=== PATIENT | female | born 1975 | race Caucasian/White ===

== ENCOUNTER 2024-05-12 20:25 | Emergency (ER) | payer MEDICARE, SELFPAY ==
--- NOTE | ~2024-05-12 | XR_ITS ---
EXAMINATION: XR TIBIA AND FIBULA, RIGHT CLINICAL INFORMATION: Trauma COMPARISON: None available. TECHNIQUE: AP and lateral views of the right tibia and fibula were obtained. FINDINGS/ XR/XR tibia fibula RT 2V IMPRESSION: No acute fracture or dislocation of the tibia/fibula. Proximal pretibial soft tissue swelling. Electronically signed by: Luis Abarca DO 05/12/2024 10:29 PM EDT
--- NOTE | ~2024-05-12 | XR_ITS ---
EXAMINATION: XR KNEE, RIGHT CLINICAL INFORMATION: Trauma COMPARISON: None available. TECHNIQUE: Four views of the right knee. FINDINGS: No acute fracture or dislocation of the right knee. Significant pretibial and prepatellar soft tissue swelling. Tricompartmental osteoarthritis, worse within the medial compartment. Postsurgical changes of ACL/PCL repair with anchor screws. Subtle cortical irregularity of the medial patella, only seen on AP view with an adjacent large soft tissue hematoma. XR/XR knee RT 3V IMPRESSION: No definite acute fracture or dislocation. However, there is focal cortical irregularity along the inferomedial aspect of the patella with associated regional soft tissue swelling. Patellar fracture cannot be excluded. Recommend repeat study with sunrise views were CT knee. Electronically signed by: Luis Abarca DO 05/12/2024 10:26 PM EDT
--- NOTE | ~2024-05-12 | CT_ITS ---
EXAMINATION: CT KNEE WITHOUT CONTRAST, RIGHT CLINICAL INFORMATION: Pain, fall, abnormal x-ray COMPARISON: Radiographs from the same day TECHNIQUE: Multidetector helical imaging was performed through the right knee. Coronal and sagittal reformatted images were created. This CT examination was performed using dose optimization techniques as appropriate, variously including the following: *Automated exposure control *Adjustment of mA and/or kV according to patient size (this includes techniques or standardized protocols for targeted exams where dose is matched to indication/reason for exam; i.e. extremities or head) *Use of iterative reconstruction technique DLP: 200 mGy-cm FINDINGS: Alignment across the knee is anatomic. Slight tricompartmental joint space narrowing along with mild osteophytosis. There is mild chronic appearing irregularity along the inferior aspect of the patella, without definite acute fracture. Redemonstrated postoperative changes with screws in the distal femur and proximal tibia. There is a chronic appearing osseous density along the posterior aspect of the medial compartment. No significant joint effusion. There is soft tissue swelling along the anteromedial aspect of the knee with an associated hematoma measuring up to approximately [address]/CT knee RT wo IV con IMPRESSION: Soft tissue swelling along the anteromedial aspect of the knee with associated hematoma measuring up to approximately 7 cm in diameter. No definite acute fracture. Electronically signed by: Paolo Murray MD 05/13/2024 12:46 AM EDT
[2024-05-12 20:30] VITALS: BP 134/92; PULSE 75; RESP 18; TEMP 36.7; O2SAT 98; BMI 26.8
--- NOTE | 2024-05-12 20:32 | ED_ITS ---
HPI - Extremity Injury (Lower) General Chief Complaint: Extremity Injury, Lower Stated Complaint: RT knee injury Time Seen by Provider: 05/12/24 22:15 Source: patient Mode of arrival: ambulatory Limitations: no limitations History of Present Illness HPI Narrative: Patient is a 48-year-old female presents emergency department for evaluation of traumatic right knee pain. Reports that she was cleaning and fell through a floorboard on the porch sustaining injury to the right knee. Has notable ecchymosis and pain to the right knee. Admits to a history of multiple surgeries in the past. She also has an area of ecchymosis to the right distal lateral thigh. Endorses pain to the left elbow but has full range of motion. Denies any numbness or tingling to the extremities. Denies any head strike or loss of consciousness. Related Data Allergies Allergy/AdvReac Type Severity Reaction Status Date / Time No Known Allergies Allergy Verified 05/12/24 20:39 Review of Systems Review of Systems: Yes all other systems are reviewed and are negative PMFSH Past Medical History Attestation statement: The following information was validated with the patient. Source: old records reviewed Social History Social History Smoked in Last 30 Days: No Use of substances other than those prescribed or required for medical reasons: Yes Substance Use Type: Marijuana Advance Directives: No Advance Directives Information Provided: Yes Do you have a plan to hurt others: No Plan Patient : No Physical Exam Vital Signs: Vital Signs: Last Vital Signs Temp 98.0 F 05/12/24 20:30 Pulse 74 05/13/24 00:00 Resp 18 05/13/24 00:00 BP 128/73 05/13/24 00:00 Pulse Ox 96 05/13/24 00:00 O2 Del Method Room Air 05/12/24 20:30 BMI result Body Mass Index 26.8 Appearance: Alert.?Oriented to person, place and time. No acute distress.?Normal affect. Eyes: Pupils equal, round and reactive to light.? ENT: Pharynx normal.?? Neck: Normal inspection.? Neck supple.?? CVS: Heart sounds normal. Normal heart rate and rhythm.? Pulses normal.?? Respiratory: No respiratory distress.? Lung sounds clear to auscultation bilaterally?? Abdomen: Soft and non-tender. Normoactive bowel sounds. No pulsatile mass.?? Skin: Skin warm and dry.? Normal skin color.? Normal skin turgor.?? Extremities: Extensive ecchymosis and swelling to the right knee. Distal lateral thigh area of ecchymosis and tenderness upon palpation. Not appear to have laxity on exam has notable tenderness throughout. 2+ DP/PT pulse bilaterally. Left elbow with full range of motion, superficial abrasion present. Neuro: Moves all extremities spontaneously. Sensation intact bilaterally. No focal neuro deficits. Ambulates with antalgic gait. Course Course Course Narrative: This is a Rapid Medical Examination (RME) performed by Gloria Medrano PA-C in triage. Full HPI, ROS, assessment and treatment plan per primary provider in the Main ED. 48 yo female here for eval of right knee/ lower leg pain. reports sweeping the floor at her apartment when her right leg fell through the floor boards. no head strike or LOC. reports pain to right knee/ lower leg. 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 tetatnus not UTD. not on anticoagulation. + vertical scar noted to right knee status post 3 knee repairs. Noted bruising just distal to right knee. Tender to palpation. Ambulating with limping gait. Plan: X-rays, Tdap booster Medications Administered Discontinued Medications Generic Name Dose Route Start Last Admin Trade Name Freq PRN Reason Stop Dose Admin Diphtheria/Tetanus/Acell Pertussis 0.5 ml 05/12/24 23:04 05/12/24 23:28 Diphth,Pertus(Acell),Tet Adult 0.5 Ml Syringe IM 05/12/24 23:05 0.5 ml .ONCE ONE Administration Medical Decision Making Medical Decision Making [facility] Narrative: Patient is a 48-year-old female presents emergency department for evaluation of right knee pain after mechanical fall as per HPI. No head strike or loss of consciousness, unlikely to have ICH, SDH, skull fracture, defer CT imaging head/cervical spine. Notable ecchymosis pain and swelling to the right knee, no laxity on evaluation. XR revealing focal cortical irregularity along the inferomedial aspect of the patella with soft tissue swelling, can not exclude patellar fracture, obtaining CT imaging for further evaluation. Extremities neurovascularly intact distally. Declines the need for analgesics at this time. Differential Diagnosis Differential Diagnoses: The differential diagnosis associated with the presentation includes (See narrative above) Admission/Observation Consideration of admission/observation: Escalation of care including admission/observation considered Independent Interpretation I performed an independent interpretation of an: Plain X-Ray Radiology Impression Discussion of test interpretation with radiology: I have reviewed the radiologist's reading. Radiologist Impression: XR/XR knee RT 3V IMPRESSION: No definite acute fracture or dislocation. However, there is focal cortical irregularity along the inferomedial aspect of the patella with associated regional soft tissue swelling. Patellar fracture cannot be excluded. Recommend repeat study with sunrise views were CT knee. XR/XR tibia fibula RT 2V IMPRESSION: No acute fracture or dislocation of the tibia/fibula. Proximal pretibial soft tissue swelling. CT/CT knee RT wo IV con IMPRESSION: Soft tissue swelling along the anteromedial aspect of the knee with associated hematoma measuring up to approximately 7 cm in diameter. No definite acute fracture. Independent Historian Clinical information obtained from an independent historian. History obtained from or confirmed by: Friend External Record Review External record reviewed: Outpatient record Prescription Management I considered prescription management with: Pain Medication Discharge Plan Discharge Clinical Impression: Knee sprain Patient Disposition: Home, Self-Care Instructions: Knee Sprain (ED), How to Use an Elastic Bandage (ED), R.I.C.E. Treatment (ED) Additional Instructions: Imaging is without evidence of acute fracture dislocation. Please be sure to rest, apply ice the area for 10-15 minutes 3-4 times daily, use Carl bandage for compression, elevate the leg above the level of your chest. For persistent symptoms or progressive symptoms please follow-up with PCP/Orthopedics. You may return back to emergency department any new or worsening symptoms or concerns. Print Language: Amharic
[2024-05-12] MEDS: Diphth,Pertus(ACell),Tet Adult 0.5 ML SYRINGE IM (23:28)
[2024-05-13] VITALS: BP 128/73; PULSE 74; RESP 18; O2SAT 96
[2024-05-13 01:12] VITALS: BP 128/73; PULSE 74; RESP 18; TEMP 36.8; O2SAT 96
== END 2024-05-13 01:13 | disposition home or self-care (01) ==
PROVIDERS: Emergency Provider Emergency Medicine; PCP Family Medicine
DX: S83.91XA Sprain of unspecified site of right knee, initial encounter (principal); W18.30XA Fall on same level, unspecified, initial encounter; Y93.9 Activity, unspecified; Y92.9 Unspecified place or not applicable; Y99.9 Unspecified external cause status; M25.561 Pain in right knee; Z23 Encounter for immunization; M25.522 Pain in left elbow
CPT/HCPCS: 73562; 73590; 73700; 90471; 90715; 99284

== ENCOUNTER 2024-10-23 23:21 | Emergency (ER) | payer MEDICARE, MEDICAID, SELFPAY ==
--- NOTE | ~2024-10-23 | CT_ITS ---
CLINICAL HISTORY: Intoxicated, head injury CT cervical spine without contrast Comparison: None Findings: The visualized portions of the bilateral lung apices appear clear. Normal vertebral body alignment. No acute fractures or dislocations. Blpe-pz-frfrcbky degenerative endplate changes are present at the cervical spine. Impression: 1. No acute fracture or dislocation injury identified at the cervical spine. This document has been electronically signed by: Sj Carpenter MD on 10/24/2024 02:54:57
--- NOTE | ~2024-10-23 | CT_ITS ---
CLINICAL HISTORY: Head injury with loss of consciousness CT head without contrast Comparison: None Findings: No intracranial mass, midline shift, hydrocephalus, or acute hemorrhage. Visualized paranasal sinuses and mastoid air cells appear clear. No acute skull fracture. Mild left parietal scalp swelling. Impression: 1. No acute intracranial abnormality. No acute intracranial hemorrhage. 2. Mild left parietal scalp swelling. No acute calvarial fracture. This document has been electronically signed by: Sj Carpenter MD on 10/24/2024 02:59:19
--- NOTE | ~2024-10-23 | CT_ITS ---
CLINICAL HISTORY: Abdominal pain and distention, elevated lipase CT abdomen and pelvis with contrast Comparison: None Findings: Minimal linear bibasilar subsegmental atelectasis. Ubtoxpna-ox-xumdl volume ascites present throughout the abdomen, limiting evaluation for acute inflammatory processes. The liver is diffusely nodular in contour, consistent with cirrhosis. The spleen is enlarged. Varices are present at the left upper abdominal quadrant. Paraesophageal varices are present. The main portal vein appears patent. No gallbladder wall thickening identified to suggest acute cholecystitis. The gallbladder is surrounded by ascites. The pancreas and bilateral adrenal glands are within normal limits for appearance. No left hydronephrosis. Mild right hydronephrosis present. There appears to be minimal right hydroureter. The gallbladder and solid organs are within normal limits. No hydronephrosis or hydroureter. No bowel obstruction, pneumoperitoneum, or pneumatosis. Tiny, fluid containing umbilical hernia. The uterus is enlarged and lobulated in contour, possibly related to uterine fibroid disease. Tiny, fat containing left inguinal hernia. The urinary bladder is moderately distended with fluid. No bladder wall thickening appreciated. Normal appendix. No acute fracture visualized. IMPRESSION: 1. Cirrhosis with pbtdrwcs-tx-lbopv volume ascites and edema throughout the abdomen, limiting evaluation for acute inflammatory processes. There is splenomegaly with varices, consistent with portal venous hypertension. 2. Mild right hydronephrosis present with minimal right hydroureter. These findings are of uncertain etiology, possibly related to some degree of compression of the distal right ureter with the enlarged uterus. 3. Findings suggesting uterine fibroid disease. This document has been electronically signed by: Sj Carpenter MD on 10/24/2024 02:50:55
--- NOTE | ~2024-10-23 | US_ITS ---
EXAMINATION: US GUIDED PARACENTESIS CLINICAL INFORMATION: Ascites, therapeutic and diagnostic. COMPARISON: CT abdomen and pelvis dated 10/24/2024. TECHNIQUE/FINDINGS: Consent was obtained. Timeout was performed. Scanning of the abdomen using real-time ultrasound imaging, and a suitable pocket of ascitic fluid was identified in the right lower quadrant. The site was marked, skin prepped and draped in sterile fashion, and subsequently in the subcutaneous soft tissues were anesthetized with 1% lidocaine. Using standard technique, a 5 K[place] Yueh catheter was advanced into the fluid pocket and left drain via vacuum bottle. Approximately 1.7 L of serena-colored ascitic fluid was drained. The catheter was removed. The patient tolerated the procedure well. No immediate complication. A sample was sent for laboratory analysis. US/US paracentesis abd w/image IMPRESSION: 1. Successful ultrasound-guided abdominal paracentesis with drainage of 1.7 L of serena ascitic fluid. No immediate complication. Electronically signed by: Jonathon Garland MD 10/24/2024 12:02 PM [facility]IR[facility]
[2024-10-23 23:29] VITALS: BP 148/78; PULSE 86; O2SAT 98
[2024-10-24] VITALS (9 sets, daily range): BP systolic 103–128; BP diastolic 63–82; PULSE 66–82; RESP 16–214; TEMP 36.1–36.9; O2SAT 94–99; BMI 29.9
--- NOTE | 2024-10-24 | ECG_ITS ---
Test Reason : fall dizziness Blood Pressure : */* mmHG Vent. Rate : 84 BPM Atrial Rate : 84 BPM P-R Int : 144 ms QRS Dur : 88 ms QT Int : 398 ms P-R-T Axes : 37 53 12 degrees QTcB Int : 470 ms Normal sinus rhythm Normal ECG No previous ECGs available Referred By: Generic ED Physician Electronically Signed By: JUSTYNA WYNNE MD
[2024-10-24 00:35] LABS: Hematocrit 41.3 % (37.0-47.0); Hemoglobin 14.3 g/dl (12.0-16.0); Mean Corpuscular HGB Conc 34.6 g/dl (31.0-35.0); Mean Corpuscular Hemoglobin 30.8 pg (27.0-33.0); Mean Corpuscular Volume 88.8 fL (80.0-98.0); Mean Platelet Volume 11.3 fL (9.4-12.3); Red Blood Count 4.65 X10*6/uL (4.20-5.50); Red Cell Distribution Width 16.3 % (11.0-16.0); White Blood Count 4.5 X10*3/uL (4.8-10.8)
[2024-10-24 00:50] LABS: Platelet Count 85 X10*3/uL (160-400)
[2024-10-24 00:52] LABS: Alanine Aminotransferase 23 U/L (0-31); Albumin Level 3.9 g/dL (3.5-5.0); Alkaline Phosphatase 80 U/L (39-117); Anion Gap 17 (12-20); Aspartate Amino Transferase 48 U/L (5-31); Bilirubin Direct 0.5 mg/dL (0.0-0.5); Bilirubin Total 1.2 mg/dL (0.0-1.0); Blood Urea Nitrogen 5 mg/dL (9-16); Carbon Dioxide 18 mmol/L (22-29); Chloride 109 mmol/L (96-108); Estimated Glomerular Filt Rate > 60; Ethanol 268 mg/dL; Glucose Random 109 mg/dL (60-115); Lipase 228 U/L (8-78); Potassium 3.7 mmol/L (3.3-5.1); Sodium 140 mmol/L (135-145); Total Protein 8.2 g/dL (6.5-8.0)
[2024-10-24 01:00] LABS: Appearance Urine Clear; Color Urine Yellow; Glucose Urine UA Negative (Negative); Leukocyte Esterase Urine Negative (Negative); Nitrite Urine Negative (Negative); Specific Gravity - Urine <= 1.005 (1.005-1.025); Urine Blood Negative (Negative); Urine Ketones Negative (Negative); Urine Protein Negative (Neg-Trace)
--- NOTE | 2024-10-24 01:05 | ED_ITS ---
HPI - General Adult General Chief complaint: Fall Stated complaint: Syncopal, Fell, HS, Lac to ear,, etoh Time Seen by Provider: 10/24/24 01:05 History of Present Illness ED Provider: Melecio MARISCAL narrative: The patient is a 49-year-old woman who says that she has a history of cirrhosis. She says she was at home today when she felt dizzy and fell and hit her head. She may have had a period of loss of consciousness. She has an injury to her left ear. She admits to drinking alcohol tonight. She says that she had a bottle of wine and a bottle of beer. She also had some marijuana. She says that she had felt dizzy before she fell. She also feels that her abdomen has gotten more distended recently. She thinks that the distention of her abdomen has been coming on for about 2 months. 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 She has not seen the paving and surfacing labourer for about a year. She has not been on her medication regimens that she has been on to manage her cirrhosis for awhile. No fever, sweats, chills. No nausea or vomiting. Related Data Allergies Allergy/AdvReac Type Severity Reaction Status Date / Time acetaminophen [From Vicodin] Allergy Itching Verified 10/24/24 00:51 hydrocodone [From Vicodin] Allergy Itching Verified 10/24/24 00:51 Review of Systems 2 Review of Systems: Yes all other systems are reviewed and are negative [facility] Social History Social History Substance Use Type: Marijuana Advance Directives: No Advance Directives Information Provided: Yes Physical Exam ED Vital Signs: Vital Signs - 24 hr 10/24/24 00:30 10/24/24 00:48 10/24/24 04:15 Temperature 97.0 F 97.5 F Pulse Rate 80 78 75 Respiratory Rate 18 18 18 Blood Pressure 120/82 128/78 118/72 Pulse Oximetry 98 94 96 Oxygen Delivery Method Room Air Room Air Room Air 10/24/24 06:31 Temperature 97.9 F Pulse Rate 76 Respiratory Rate 16 Blood Pressure 103/63 Pulse Oximetry 95 Oxygen Delivery Method Room Air BMI result Body Mass Index 29.9 Const Other: The patient is awake and alert. She looks like a somewhat chronically ill- appearing 49-year-old. She seemed intoxicated. HENMT Other: The patient has a number of abrasions to the pinna of the left ear. No other significant signs of trauma to the head or the face. No raccoon eyes. No lacey sign. Mucous membranes are moist. The airway is clear. Eyes General: appearance normal, both eyes and all related structures Conjunctivae: conjunctivae normal Sclerae: sclerae normal Pupils: Equal, round and reactive pupils present EOM: EOMs intact bilaterally Neck Other: No significant posterior midline C-spine tenderness but I did not feel I could clinically clear the patient's C-spine because she seemed intoxicated. No swelling to the neck. Resp Effort & Inspection: normal respiratory effort Auscultation: clear to auscultation bilaterally Cardio Rate: regular rate Rhythm: regular rhythm Heart sounds: S1 normal heart sound present and S2 normal heart sound present GI Other: The abdomen is protuberant and seems full but is not particularly tender. There is some protrusion at the umbilicus. There is a pitka's point of tympany. Skin Other: The skin is dry and unremarkable aside from the skin of the pinna of the left ear which has a few abrasions. Neuro Other: The patient was awake alert and seemed intoxicated. However there were no obvious focal neurological findings. Her face was symmetrical. Her eye movements were intact. Her speech was not grossly slurred. She moves her extremities symmetrically. She walked very slowly but was able to walk. Cranial nerves: Yes Equal, round and reactive pupils present Extrem Other: Mild peripheral edema. Medications Administered Discontinued Medications Generic Name Dose Route Start Last Admin Trade Name Freq PRN Reason Stop Dose Admin Iohexol 85 ml 10/24/24 02:04 10/24/24 02:05 Iohexol 350 Mg/Ml 100 Ml Infus..Btl IV 10/24/24 02:05 85 ml ONCE ONE Administration Medical Decision Making Medical Decision Making [facility] Narrative: The patient is a 49-year-old woman who says she has a history of cirrhosis. She had a syncopal episode in her kitchen after feeling dizzy. She says that she passed out and woke up on the floor. She has abrasions to the left ear. She admits to alcohol use tonight. She claims this is the 1st time in a few months that she has had alcohol. She also had some marijuana. These may have contributed to her syncopal episode. The patient is also complaining of abdominal distention that she she says has been getting worse over the last 2 months. Her physical exam is suggestive of ascites. She does not seem to have any significant pain or tenderness that would suggest spontaneous bacterial peritonitis. The patient's labs show a white count of 4.5, hemoglobin 14.3, platelet count 85, differential on the white count is 70 5% neutrophils. Her INR is 1.3. Comprehensive metabolic panel shows an AST of 48, ALT of 23, total bilirubin of 1.2, lipase of 228. She does not complain of epigastric abdominal pain and does not seem to have significant tenderness that would suggest pancreatitis. Her ammonia level is 31. CT of the abdomen and pelvis shows cirrhosis with moderate to large volume ascites and edema throughout the abdomen there is splenomegaly with varices. There are findings of right hydronephrosis which do not correlate with any symptoms the patient seems to be having. In some this is a 49-year-old woman with previously diagnosed alcoholic cirrhosis who had a syncopal episode today in the setting of worsening ascites over the last 2 months. Additionally she has not been in touch with any of her doctors significantly recently. The patient claims that the alcohol use tonight was the 1st time in months. I suspect that she fainted because of her alcohol and marijuana use. Her ethanol level was 268. Her EKG is unremarkable. Her hemoglobin is good. I spoke to the admitting hospitalist about this patient. He did not feel that there was any definite acute medical decompensation which would require admission to the hospital. I will therefore attempt to obtain a therapeutic paracentesis through Interventional Radiology. The patient will be signed out to the oncoming emergency physician at change of shift. My expectation is that the patient will probably tolerate a paracentesis well. The patient will need to reconnect with her paving and surfacing labourer at [facility] or get in touch with the local paving and surfacing labourer. She will also need to be advised to completely abstain from alcohol. Lab Data 10/24/24 00:28 10/24/24 00:28 Labs: Lab Results 10/24/24 10/24/24 10/24/24 Range/Units 00:28 00:49 00:58 WBC 4.5 L (4.8-10.8) X10*3/uL RBC 4.65 (4.20-5.50) X10*6/uL Hgb 14.3 (12.0-16.0) g/dl Hct 41.3 (37.0-47.0) % MCV 88.8 (80.0-98.0) fL MCH 30.8 (27.0-33.0) pg MCHC 34.6 (31.0-35.0) g/dl RDW 16.3 H (11.0-16.0) % Plt Count 85 L (160-400) X10*3/uL MPV 11.3 (9.4-12.3) fL Immature Gran % (Auto) 0.4 (0.0-0.4) % Neut % (Auto) 75.6 H (45-73) % Lymph % (Auto) 13.9 L (20-40) % [place] % (Auto) 8.6 (2-11) % Eos % (Auto) 1.1 (0-4) % Baso % (Auto) 0.4 (0-2) % Lymph # (Auto) 0.7 L (1.2-4.9) X10*3/uL [place] # (Auto) 0.4 (0.1-1.2) X10*3/uL Eos # (Auto) 0.1 (0.0-0.4) X10*3/uL Baso # (Auto) 0.0 (0.0-0.2) X10*3/uL Abs Immat Gran (auto) 0.02 (0.00-0.03) X10*3/uL Absolute Neuts (auto) 3.5 (2.0-8.3) x10*3/uL Absolute Nucleated RBC 0.000 (0.0-0.012) X10*3/uL Nucleated RBC % (auto) 0.0 (0.0-0.2) /100WBC PT (10.9-12.4) SEC INR (0.9-1.1) Sodium 140 (135-145) mmol/L Potassium 3.7 (3.3-5.1) mmol/L Chloride 109 H (96-108) mmol/L Carbon Dioxide 18 L (22-29) mmol/L Anion Gap 17 (12-20) BUN 5 L (9-16) mg/dL Creatinine 0.67 (0.5-1.4) mg/dL Estim Creat Clear Calc TNP Estimated GFR > 60 Random Glucose 109 (60-115) mg/dL Calcium 9.0 (8.4-10.2) mg/dL Total Bilirubin 1.2 H (0.0-1.0) mg/dL Direct Bilirubin 0.5 (0.0-0.5) mg/dL AST 48 H (5-31) U/L ALT 23 (0-31) U/L Alkaline Phosphatase 80 (39-117) U/L Ammonia (13-55) umol/L Total Protein 8.2 H (6.5-8.0) g/dL Albumin 3.9 (3.5-5.0) g/dL Lipase 228 H (8-78) U/L Urine Color Yellow Urine Appearance Clear Urine pH 6.0 (5.0-9.0) Ur Specific [place] <= 1.005 (1.005-1.025) Urine Protein Negative (Neg-Trace) mg/dL Urine Glucose (UA) Negative (Negative) mg/dL Urine Ketones Negative (Negative) mg/dL Urine Blood Negative (Negative) Urine Nitrite Negative (Negative) Ur Leukocyte Esterase Negative (Negative) Urine Opiates Screen Not Detected (Not Detect) Ur Buprenorphine Scrn Not Detected (Not Detect) ng/mL Ur Oxycodone Screen Not Detected (Not Detect) ng/mL Urine Methadone Screen Not Detected (Not Detect) ng/mL Urine Fentanyl Screen Not Detected (Not Detect) Ur Barbiturates Screen Not Detected (Not Detect) Ur Phencyclidine Scrn Not Detected (Not Detect) Ur Amphetamines Screen Not Detected (Not Detect) U Benzodiazepines Scrn Not Detected (Not Detect) Urine Cocaine Screen Not Detected (Not Detect) U Marijuana (THC) Screen POSITIVE H (Not Detect) Ethyl Alcohol 268 mg/dL COVID-19 (SANTANA) Negative (Negative) COVID-19 Clin Com See Note Influenza Type A (BILLIE) Negative (Negative) Influenza Type B (BILLIE) Negative (Negative) Influenza A & B Note See Note 10/24/24 Range/Units 03:56 WBC (4.8-10.8) X10*3/uL RBC (4.20-5.50) X10*6/uL Hgb (12.0-16.0) g/dl Hct (37.0-47.0) % MCV (80.0-98.0) fL MCH (27.0-33.0) pg MCHC (31.0-35.0) g/dl RDW (11.0-16.0) % Plt Count (160-400) X10*3/uL MPV (9.4-12.3) fL Immature Gran % (Auto) (0.0-0.4) % Neut % (Auto) (45-73) % Lymph % (Auto) (20-40) % [place] % (Auto) (2-11) % Eos % (Auto) (0-4) % Baso % (Auto) (0-2) % Lymph # (Auto) (1.2-4.9) X10*3/uL [place] # (Auto) (0.1-1.2) X10*3/uL Eos # (Auto) (0.0-0.4) X10*3/uL Baso # (Auto) (0.0-0.2) X10*3/uL Abs Immat Gran (auto) (0.00-0.03) X10*3/uL Absolute Neuts (auto) (2.0-8.3) x10*3/uL Absolute Nucleated RBC (0.0-0.012) X10*3/uL Nucleated RBC % (auto) (0.0-0.2) /100WBC PT 14.6 H (10.9-12.4) SEC INR 1.3 H (0.9-1.1) Sodium (135-145) mmol/L Potassium (3.3-5.1) mmol/L Chloride (96-108) mmol/L Carbon Dioxide (22-29) mmol/L Anion Gap (12-20) BUN (9-16) mg/dL Creatinine (0.5-1.4) mg/dL Estim Creat Clear Calc Estimated GFR Random Glucose (60-115) mg/dL Calcium (8.4-10.2) mg/dL Total Bilirubin (0.0-1.0) mg/dL Direct Bilirubin (0.0-0.5) mg/dL AST (5-31) U/L ALT (0-31) U/L Alkaline Phosphatase (39-117) U/L Ammonia 31 (13-55) umol/L Total Protein (6.5-8.0) g/dL Albumin (3.5-5.0) g/dL Lipase (8-78) U/L Urine Color Urine Appearance Urine pH (5.0-9.0) Ur Specific [place] (1.005-1.025) Urine Protein (Neg-Trace) mg/dL Urine Glucose (UA) (Negative) mg/dL Urine Ketones (Negative) mg/dL Urine Blood (Negative) Urine Nitrite (Negative) Ur Leukocyte Esterase (Negative) Urine Opiates Screen (Not Detect) Ur Buprenorphine Scrn (Not Detect) ng/mL Ur Oxycodone Screen (Not Detect) ng/mL Urine Methadone Screen (Not Detect) ng/mL Urine Fentanyl Screen (Not Detect) Ur Barbiturates Screen (Not Detect) Ur Phencyclidine Scrn (Not Detect) Ur Amphetamines Screen (Not Detect) U Benzodiazepines Scrn (Not Detect) Urine Cocaine Screen (Not Detect) U Marijuana (THC) Screen (Not Detect) Ethyl Alcohol mg/dL COVID-19 (SANTANA) (Negative) COVID-19 Clin Com Influenza Type A (BILLIE) (Negative) Influenza Type B (BILLIE) (Negative) Influenza A & B Note Discharge Plan Discharge Clinical Impression: Syncope, Head injury, Abrasion of left ear, Ascites due to alcoholic cirrhosis, Alcohol intoxication, Marijuana intoxication Patient Disposition: Still a Patient Print Language: New Zealander
[2024-10-24 01:10] LABS: Amphetamine Screen Urine Not Detected (Not Detect); Barbiturates, Urine Not Detected (Not Detect); Benzodiazepines Screen Urine Not Detected (Not Detect); Buprenorphine Scr Not Detected (Not Detect); Cannabinoid Screen Urine POSITIVE (Not Detect); Cocaine Screen Urine Not Detected (Not Detect); Fentanyl, urine Not Detected (Not Detect); Methadone Screen, Urine Not Detected (Not Detect); Opiate Screen Urine Not Detected (Not Detect); Oxycodone Screen Urine Not Detected (Not Detect); Phencyclidine Screen Urine Not Detected (Not Detect)
[2024-10-24 01:23] LABS: COVID-19 Test Negative (Negative); IDNOW Serial# 55D5AD1C; IDNOW Serial# 58CA691E; Influenza A Negative (Negative); Influenza B2 Negative (Negative)
[2024-10-24] MEDS: iohexoL 350 MG/ML 100 ML INFUS..BTL 85 ML IV (02:05)
[2024-10-24 03:14] LABS: MANUAL DIFF FLAG NO
[2024-10-24 03:17] LABS: Basophils Percent Auto 0.4 % (0-2); Eosinophils Absolute Auto 0.1 X10*3/uL (0.0-0.4); Eosinophils Percent Auto 1.1 % (0-4); Imm Gran Abs Auto 0.02 X10*3/uL (0.00-0.03); Imm Gran Pct Auto 0.4 % (0.0-0.4); Lymphocytes Absolute Auto 0.7 X10*3/uL (1.2-4.9); Lymphocytes Percent Auto 13.9 % (20-40); Monocytes Absolute Auto 0.4 X10*3/uL (0.1-1.2); Monocytes Percent Auto 8.6 % (2-11); Neutrophils Absolute Auto 3.5 x10*3/uL (2.0-8.3); Neutrophils Percent Auto 75.6 % (45-73); PLT CLUMP 1; SCAN SMEAR FLAG 1
--- NOTE | 2024-10-24 03:59 | PC.NURSE ---
Pt BIB ems from home for report of syncopal episode with head strike, small lac to left ear and head pain. Pt reports drinking 2 beers and smoking marijuana prior to fall. Pt reports history of cirrhosis, denied abdominal pain at time of triage, only c/o headache to L-head 10/20. At approximately 0010 t/w was discharging another pt and cleaning room to put this pt in the room when pt visualized walking in [address] and once in view of RN throwing herself on the floor using her arm to shield head from fall. T/w asked if pt was ok and she stated she had to go to the bathroom and fell, also endorsing severe pain at this time asking when a doctor will see her because she is very sick and has cirhosis. Pt assisted to stretcher and brought into room where her labs were, drawn, EKG completed and IV placed. aware and assessed pt. Pt went to CT, resting in bed, eyes closed.
[2024-10-24 04:07] LABS: Ammonia 31 umol/L (13-55); INTERNATIONAL NORM RATIO 1.3 (0.9-1.1); Prothrombin Time 14.6 SEC (10.9-12.4)
[2024-10-24] MEDS: Lidocaine HCl 1 % MPF 5 ML VIAL SUBCUT (11:50)
[2024-10-24 12:13] LABS: MN% 82.8 %; PMN% 17.2 %; RBC Peritoneal Fluid 0.006 X10*6/uL; WBC Peritoneal Fluid 0.411 X10*3/uL
[2024-10-24] MEDS: Bacitracin Oint 0.9 GM PACKET 2 APPL TOPICAL (12:20)
[2024-10-24] MEDS: Albumin Human 25 % 50 ML 100 ML IV ×4 (12:21→14:36)
[2024-10-24 13:11] LABS: BF Shift QC OK YES; Eosinophils Peritoneal Fl 34 %; Lymphocyte Peritoneal Fl 13 %; Monocytes Peritoneal Fl 36 %; Neutrophils Peritoneal Fluid 17 %
[2024-10-27 15:10] LABS: Albumin Peritoneal Fluid 1.5; Amylase Peritoneal Fluid 28; LDH Peritoneal Fluid 60; Total Protein Peritoneal Fluid 2.2
== END 2024-10-24 15:14 | disposition home or self-care (01) ==
PROVIDERS: Physician Assistant Surgical; Emergency Provider Emergency Medicine; PCP Family Medicine
DX: S00.412A Abrasion of left ear, initial encounter (principal); R55 Syncope and collapse; K70.31 Alcoholic cirrhosis of liver with ascites; R51.9 Headache, unspecified; R14.0 Abdominal distension (gaseous); F10.10 Alcohol abuse, uncomplicated; F12.929 Cannabis use, unspecified with intoxication, unspecified; Y90.8 Blood alcohol level of 240 mg/100 ml or more; X58.XXXA Exposure to other specified factors, initial encounter; Y93.9 Activity, unspecified; Y92.9 Unspecified place or not applicable; Y99.8 Other external cause status; Z11.52 Encounter for screening for COVID-19; Z79.899 Other long term (current) drug therapy; Z51.81 Encounter for therapeutic drug level monitoring
CPT/HCPCS: 36415; 49083; 70450; 72125; 74177; 80053; 80307; 81003; 82042; 82140; 82150; 82248; 83615; 83690; 84157; 85025; 85027; 85610; 87070; 87073; 87205; 87502; 87635; 89051; 93005; 96365; 96366; 99285; J2003; P9047; Q9967

== ENCOUNTER → 2024-10-24 00:27 | Outpatient (BNV) | payer MEDICARE, MEDICAID, SELFPAY | PROVIDERS: Emergency Provider Emergency Medicine; PCP Family Medicine; Visit Provider Internal Medicine Cardiovascular Disease | DX: R42 Dizziness and giddiness (principal); W19.XXXA Unspecified fall, initial encounter | CPT/HCPCS: 93010 ==

== ENCOUNTER → 2024-10-24 01:33 | Outpatient (BNV) | payer MEDICARE, MEDICAID, SELFPAY | PROVIDERS: Emergency Provider Emergency Medicine; PCP Family Medicine; Visit Provider Radiology Diagnostic Radiology | DX: R19.03 Right lower quadrant abdominal swelling, mass and lump (principal); K70.31 Alcoholic cirrhosis of liver with ascites; N13.39 Other hydronephrosis; S00.93XA Contusion of unspecified part of head, initial encounter; S06.0X9A Concussion with loss of consciousness of unspecified duration, initial encounter | CPT/HCPCS: 49083 ==

== ENCOUNTER 2025-04-16 22:01 | Emergency (ER) | payer MEDICARE, MEDICAID, SELFPAY ==
--- OUTSIDE RECORDS SUMMARY | 2024-03-03 17:59 | XMS_ITS | Encounter Summary ---
Author Organization [facility] Address [address] [place] [phone] Phone Care Team Providers Care Assistant Associate Full Professor Name Role Phone Yue Burcaiga MD Primary Care Provider [phone]- [phone] Encounter Details Date Type Department Care Team (Late st Contact Info) Description 03/03/2024 5:59 PM EDT Hospital Encounter [facility] [address] [place] [id number] Apoorva Clark FNP [address] [place] [id number] [email or web address] Social History Tobacco Use Types Packs/Day Years Used Date Smoking Tobacco: Never Assessed Education Answer Date Recorded Are you interested in more education? Not on radhames e 03/03/2024 Are you concerned about learning? Not on file 03/03/2024 No 03/03/2024 No 03/03/2024 Digital Access Answer Date Recorded No 03/03/2024 No 03/03/2024 Reliable internet access at home? Not on file 03/03/2024 Device with a working camera? Not on file Comments Unknown Sex and Gender Information Value Date Recorded Sex Assigned at Not on file Legal Sex Female 9:28 PM EDT Gender Identity Not on file Sexual Orientation Not on file documented as of this encounter Plan of Treatment Not on file documented as of this encounter Procedures Procedure Name Priority Date/Time Associated Diagnosis Comments XR TIBIA FIBULA 2 VIEWS (LEFT) Urgent/patient waiting 03/03/2024 6:19 PM EDT Fall, initial encounter documented in this encounter Results * XR Tibia Fibula 2 Views (Left) (03/03/2024 6:19 PM EDT) Anatomical Region Laterality Modality Leg Left Computed Radiogr aphy 03/03/2024 6:43 PM EDT Impressions 03/03/2024 6:43 PM EDT No fracture or dislocation. Narrative 03/03/2024 6:43 PM EDT XR TIBIA FIBULA 2 VIEWS (LEFT) COMPARISON: None FINDINGS: No fracture. Normal alignment. No lytic or blastic lesion. Visualized portion of the knee and ankle appear normal. No soft tissue swelling. Procedure Note Moshe Baird MD, MAGEN - 03/03/2024 XR TIBIA FIBULA 2 VIEWS (LEFT) COMPARISON: None FINDINGS: No fracture. Normal alignment. No lytic or blastic lesion. Visualizedportion of the knee and ankle appear normal. No soft tissue swelling. IMPRESSION: No fracture or dislocation. 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 It is not the complete legal health record.[facility]
[2025-04-16 22:04] VITALS: BP 152/95; PULSE 95; O2SAT 95
[2025-04-16 22:06] VITALS: BP 139/77; PULSE 92; RESP 18; O2SAT 97; BMI 29.0
--- NOTE | 2025-04-16 22:12 | ED_ITS ---
HPI - Fall General Chief Complaint: Fall Stated Complaint: ETOH Time Seen by Provider: 04/16/25 22:05 Source: patient and EMS Mode of arrival: EMS Limitations: no limitations History of Present Illness ED Provider: Dr. Denisse Lopez HPI Narrative: Patient comes to the emergency room via ambulance. Patient states that earlier today, patient was drinking alcohol and she fell. Patient states that she did not hit her head or lost consciousness. Patient states that she has been a cirrhosis patient for more than 10 years, and decided that it was time to get help. Patient called her neighbor who called 911. Patient states that she feels well, admits to drinking alcohol, denies drug use. Patient denies pain anywhere. Related Data Allergies Allergy/AdvReac Type Severity Reaction Status Date / Time acetaminophen (From Vicodin) Allergy Itching Verified 04/16/25 22:11 hydrocodone (From Vicodin) Allergy Itching Verified 04/16/25 22:11 Review of Systems 2 Review of Systems: Constitutional : No Weight loss, No Fever, No Chills, No Night Sweats, No Fatigue, No Malaise ENT/Mouth : No Hearing loss, No Ear Pain, No Nasal Congestion, No Sinus Pain, No Hoarseness, No sore throat, No Rhinorrhea, No Swallowing Difficulty Eyes: No Eye Pain, No Swelling, No Redness, No Foreign Body, No Discharge, No Vision Changes Cardiovascular : No Chest Pain, No SOB, No Dyspnea on Exertion, No Orthopnea, No Edema, No Palpitations Respiratory : No Cough, No Sputum, No Wheezing, No Smoke Exposure, No Dyspnea Gastrointestinal : No Nausea, No Vomiting, No Diarrhea, No Constipation, No abdominal Pain, No Hematochezia, No Melena Genitourinary : no irregular bleeding, No Dysuria, No Urinary Frequency, No Hematuria, No Urinary Incontinence, No Urgency, No Flank Pain, No Urinary Flow Changes, No Hesitancy Musculoskeletal : No joint pain, No Myalgias, No Joint Swelling Skin : No Skin Lesions, No rash Neuro : No Weakness, No Numbness, No Paresthesias, No Loss of Consciousness, No Dizziness, No Headache Psych : No Anxiety/Panic, No Depression, No SI/HI/AH/VH, admits to ETOH relapse Heme/Lymph: No Bruising, No Bleeding,No Lymphadenopathy Endocrine : No Polyuria, No Polydipsia, No Temperature Intolerance PMF Past Medical History Medical History (Updated 04/17/25 @ 00:28 by Denisse Lopez MD) Cirrhosis Social History Social History Alcohol intake: current Alcohol intake frequency: holidays/special occasions only Substance Use Type: Marijuana Advance Directives: No Advance Directives Information Provided: No Do you have a plan to hurt others: No Plan Physical Exam 2 Exam: Exam: Appearance: Alert. Oriented X3. No acute distress. Eyes: Pupils equal, round and reactive to light. ENT: Pharynx normal. Neck: Normal inspection. Neck supple. No lymph nodes noted. No crepitus CVS: Normal heart rate and rhythm. Pulses normal. Normal S1 and S2 Respiratory: No respiratory distress. Breath sounds normal. No Wheezing. No rales Abdomen: Soft and nontender. No rigidity. No distention. Patient has a periumbilical hernia that is easily reducible. No signs of profuse ascites. No abdominal pain. Skin: Skin warm and dry. Normal skin color. Normal skin turgor. Extremities: No lower extremity edema. No Lacerations. No Rash Neuro: Oriented X 3. No motor deficit. No sensory deficit. Moving all extremities. No slurred speech. CN 2 through 12 grossly intact Psych: calm, cooperative, normal affect Vital Signs: Vital Signs: Last Vital Signs Pulse 92 04/16/25 22:06 Resp 18 04/16/25 22:06 BP 139/77 04/16/25 22:06 Pulse Ox 97 04/16/25 22:06 O2 Del Method Room Air 04/16/25 22:06 BMI result Body Mass Index 29.0 Course Course Course Narrative: Patient is calm, cooperative, admits to relapsing drinking alcohol. Patient denies pain anywhere. All of patient's labs pending Patient denies SI or HI, Section 12 is not indicated at this time Medical Decision Making Medical Decision Making [facility] Narrative: My interpretation of labs: Patient's hematology at baseline, platelets on the lower side, today 70, chronic. No significant abnormality in patient's chemistry. LFTs slightly bumped AST ALT, lipase normal, magnesium 2.1 ETOH 407 Patient is awake, alert Vitals stable Patient not SI or HI Plan: Metabolize to freedom When patient is more sober, we will offer detox At this time, 00:30, patient is completely awake, alert and oriented x3, clinically sober Patient states that she feels well to go home Patient declined detox Patient called an Uber to take her home Differential Diagnosis Differential Diagnoses: The differential diagnosis associated with the presentation includes (Alcohol intoxication, alcohol abuse, polysubstance abuse) Admission/Observation Consideration of admission/observation: Escalation of care including admission/observation considered (Patient is under physician observation waiting to become more sober, likely to be discharged home) Lab Data MDM Lab Attestation statement: I reviewed the patient's lab results. 04/16/25 22:38 04/16/25 22:38 Labs: Lab Results 04/16/25 Range/Units 22:38 WBC 4.7 L (4.8-10.8) X10*3/uL RBC 4.32 (4.20-5.50) X10*6/uL Hgb 14.4 (12.0-16.0) g/dl Hct 40.5 (37.0-47.0) % MCV 93.8 (80.0-98.0) fL MCH 33.3 H (27.0-33.0) pg MCHC 35.6 H (31.0-35.0) g/dl RDW 15.4 (11.0-16.0) % Plt Count 70 L (160-400) X10*3/uL MPV 10.8 (9.4-12.3) fL Immature Gran % (Auto) 0.2 (0.0-0.4) % Neut % (Auto) 73.5 H (45-73) % Lymph % (Auto) 17.1 L (20-40) % [place] % (Auto) 5.9 (2-11) % Eos % (Auto) 2.7 (0-4) % Baso % (Auto) 0.6 (0-2) % Lymph # (Auto) 0.8 L (1.2-4.9) X10*3/uL [place] # (Auto) 0.3 (0.1-1.2) X10*3/uL Eos # (Auto) 0.1 (0.0-0.4) X10*3/uL Baso # (Auto) 0.0 (0.0-0.2) X10*3/uL Abs Immat Gran (auto) 0.01 (0.00-0.03) X10*3/uL Absolute Neuts (auto) 3.5 (2.0-8.3) x10*3/uL Absolute Nucleated RBC 0.000 (0.0-0.012) X10*3/uL Nucleated RBC % (auto) 0.0 (0.0-0.2) /100WBC Smear Tech's Comments VERIFIED Sodium 143 (135-145) mmol/L Potassium 3.5 (3.3-5.1) mmol/L Chloride 109 H (96-108) mmol/L Carbon Dioxide 21 L (22-29) mmol/L Anion Gap 17 (12-20) BUN 7 L (9-16) mg/dL Creatinine 0.62 (0.5-1.4) mg/dL Estim Creat Clear Calc 101.9 Estimated GFR > 60 Random Glucose 97 (60-115) mg/dL Calcium 8.6 (8.4-10.2) mg/dL Magnesium 2.1 (1.6-2.6) mg/dL Total Bilirubin 0.7 (0.0-1.0) mg/dL Direct Bilirubin 0.4 (0.0-0.5) mg/dL AST 60 H (5-31) U/L ALT 35 H (0-31) U/L Alkaline Phosphatase 89 (39-117) U/L Total Protein 8.1 H (6.5-8.0) g/dL Albumin 4.4 (3.5-5.0) g/dL Lipase 40 (8-78) U/L Ethyl Alcohol 407 H* mg/dL Critical Care Time Critical Care Time Critical Care Time: Yes Total Critical Care Time: 35 Attestation: I have personally provided critical care time. Time includes review of lab data, radiology results, discussion with consultants, and monitoring for potential decompensation. Intervention performed as documented. Discharge Plan Discharge Clinical Impression: Alcohol intoxication Patient Disposition: Home, Self-Care Instructions: Alcohol Intoxication (ED) Additional Instructions: Please follow-up with your primary care physician tomorrow. If you have any worsening or new symptoms, please return to the emergency room or call 911 Print Language: Estonian
--- OUTSIDE RECORDS SUMMARY | 2025-04-16 22:25 | XMS_ITS | Encounter Summary ---
Author Organization [facility] Address [address] [place] [address] Care Team Providers Care Toe Pounder Name Role Phone Yue Burciaga MD Primary Care Provider [phone] Encounter Details Date Type Department Care Team (Late st Contact Info) Description 11/13/[address] [facility] Interventional Radiology [address], [place] [id number] Tisha Nova PA [address], [place] [id number] Social History Tobacco Use Types Packs/Day Years Used Date Smoking Tobacco: Never Smokeless Tobacco: Never Comments:: Alcohol Use Standard Drinks/Week Comments Not Currently 0 (1 standard drink = 0.6 oz pur e alcohol) jul 2014 quit [facility] Utilities Answer Date Recorded In the past 12 months has e [employer], gas, oil, or water [employer] threatened to shut off services in your home? Yes 12/27/2023 Hunger Vital Sign Answer Date Recorded Within the past 12 months, y ou worried that your food would run out before you got the money to buy more. Sometimes true Within the past 12 months, t he food you bought just didn't last and you didn't have money to get more. Never true Transportation Answer Date Recorded In the past 12 months, has l ack of reliable transportation kept you from medical appointments, meetings, work or from getting things needed for daily living? Yes 12/27/2023 Housing Answer Date Recorded Housing Risk Low 1 12/27/2023 Housing Risk Medium 1 12/27/2023 Housing Risk High 1 12/27/2023 What is your living situation today? [facility] 12/27/2023 Comments No Sex and Gender Information Value Date Recorded Sex Assigned at Female 09/11/2018 3:33 PM EST Legal Sex Female 8:25 AM EDT Gender Identity Female 09/11/2018 3:33 PM EST Sexual Orientation Lesbian or Scott 09/11/2018 3: 33 PM EST documented as of this encounter Plan of Treatment Upcoming Encounters Date Type Department Care Team (Late st Contact Info) Description 06/08/2025 12:00 PM EDT Follow-Up [facility] [address] [place] [address] [employer] Senior Sergeant: Debbie Roach NP [address] [place] [address] 06/09/2025 1:00 PM EDT Office Visit [facility] Dermatology Clinic 4th Floor [address] [place] [id number] [employer] Senior Sergeant: Davina Deras MD PhD [address] [place] [address] 03/11/2026 2:30 PM EDT Appointment [address]. [place] [address] Scheduled Procedures Name Priority Associated Diagnoses Date/Ti me UPPER ENDOSCOPY WITH POSSIBL E BIOPSY AND/OR POLYPECTOMY AND POSSIBLE MODERATE SEDATION Alcoholic cirrhosis, unspecified whether ascites present (HCC) COLONOSCOPY SCREENING, LOW R ISK WITH POSSIBLE MODERATE SEDATION Colon cancer screening UPPER ENDOSCOPY; DIAGNOSTIC WITH BRUSH/WASH (SP) WITH POSSIBLE MODERATE SEDATION Alcoholic cirrhosis, unspecified whether ascites present documented as of this encounter Visit Diagnoses Not on filedocumented in this encounter Care Teams Toe Pounder Relationship Specialty Start Date End Date Yue Burciaga MD [address] [place] [address] PCP - General Family Medicine 01/26/23 documented as of this encounter
[2025-04-16 22:43] LABS: Imm Gran Abs Auto 0.01 X10*3/uL (0.00-0.03); Imm Gran Pct Auto 0.2 % (0.0-0.4); MANUAL DIFF FLAG SCAN; Mean Corpuscular Hemoglobin 33.3 pg (27.0-33.0); Mean Corpuscular Volume 93.8 fL (80.0-98.0); NRBC Abs Auto 0.000 X10*3/uL (0.0-0.012); NRBC Pct Auto 0.0 /100WBC (0.0-0.2); PLT CLUMP 1; SCAN SMEAR FLAG 1
[2025-04-16 22:45] LABS: Hematocrit 40.5 % (37.0-47.0); Hemoglobin 14.4 g/dl (12.0-16.0); Lymphocytes Absolute Auto 0.8 X10*3/uL (1.2-4.9); Mean Corpuscular HGB Conc 35.6 g/dl (31.0-35.0); Red Blood Count 4.32 X10*6/uL (4.20-5.50)
[2025-04-16 22:46] LABS: Platelet Count 70 X10*3/uL (160-400); White Blood Count 4.7 X10*3/uL (4.8-10.8)
[2025-04-16 22:57] LABS: Alanine Aminotransferase 35 U/L (0-31); Albumin Level 4.4 g/dL (3.5-5.0); Alkaline Phosphatase 89 U/L (39-117); Anion Gap 17 (12-20); Aspartate Amino Transferase 60 U/L (5-31); Blood Urea Nitrogen 7 mg/dL (9-16); Calcium 8.6 mg/dL (8.4-10.2); Carbon Dioxide 21 mmol/L (22-29); Chloride 109 mmol/L (96-108); Creatinine Clr Calc Pharmacy 101.9; Estimated Glomerular Filt Rate > 60; Lipase 40 U/L (8-78); Magnesium 2.1 mg/dL (1.6-2.6); Potassium 3.5 mmol/L (3.3-5.1); Sodium 143 mmol/L (135-145); Total Protein 8.1 g/dL (6.5-8.0)
[2025-04-17 00:30] VITALS: BP 139/77; PULSE 92; RESP 18; TEMP 36.6; O2SAT 97
== END 2025-04-17 00:31 | disposition home or self-care (01) ==
PROVIDERS: Emergency Provider Emergency Medicine; PCP Family Medicine
DX: F10.129 Alcohol abuse with intoxication, unspecified (principal); K70.30 Alcoholic cirrhosis of liver without ascites
CPT/HCPCS: 36415; 80048; 80076; 80307; 83690; 83735; 85025; 99282; 99283